=== PATIENT | female | born 1990 | race Caucasian/White ===

== ENCOUNTER 2016-09-24 20:33 | Inpatient (IN) | payer MEDICAID ==
[~2016-09-24 20:33] MED LIST: PRENATAL1 EACH PO
[2016-09-26] MEDS ORDERED: IBUPROFEN800 M1 PO (11:50)
== END 2016-09-26 16:00 | DRG 775 ==
LOC: LDR 20:33 → OBGF 09-25 00:55
PROVIDERS: ADMIT Advanced Practice Midwife
PROC: 10E0XZZ Delivery of Products of Conception, External Approach (ICD-10-PCS; principal; 2016-09-24)
PROC: 0HQ9XZZ Repair Perineum Skin, External Approach (ICD-10-PCS; 2016-09-24)
DX: O48.0 Post-term pregnancy (principal); O70.0 First degree perineal laceration during delivery; Z3A.41 41 weeks gestation of pregnancy; Z37.0 Single live birth